=== PATIENT | male | born 1940 | race Caucasian/White ===

== ENCOUNTER 2020-08-10 09:34 | Inpatient (IN) | payer MEDICARE ==
[~2020-08-10 09:34] MED LIST: Sodium Chloride 0.9% 1,000 ML BAG ONE
[2020-08-10] MEDS ORDERED: Ketorolac Tromethamine 30 MG/ML VIAL ONE (10:15)
[2020-08-10 10:30] LABS: #Basophils 0.1 thou/uL (0.0-0.2); #Lymphocytes 0.6 thou/uL (1.20-3.40); #Monocytes 0.8 thou/uL (0.11-0.59); #Neutrophils 8.6 thou/uL (1.40-6.50); %Basophils 1.1 % (0.0-1.0); %Eosinophils 0.2 % (0.0-10.0); %Lymphocytes 5.9 % (21.0-51.0); %Monocytes 7.6 % (0.0-10.0); %Neutrophils 85.2 % (42.0-75.0); Hemoglobin 14.9 g/dL (14.0-18.0); Mean Corpuscular HGB CONC 32.7 g/dL (32.0-36.0); Mean Corpuscular Hemoglobin 27.5 pg (27.0-31.0); Mean Corpuscular Volume 83.9 fL (78.0-98.0); Mean Platelet Volume 5.1 fL (7.4-10.4); Platelet Count 189 thou/uL (130-400); RBC Distribution Width 12.4 % (11.5-14.5); Red Blood Cell (RBC) Count 5.41 mill/uL (4.70-6.10); White Blood Cell (WBC) Count 10.1 thou/uL (4.8-10.8)
[2020-08-10 10:47] LABS: ALT (SGPT) 48 U/L (8-55); AST (SGOT) 57 U/L (5-34); Albumin 4.2 g/dL (3.4-4.8); Alkaline Phosphatase 58 U/L (40-110); Anion Gap 20 mmol/L (10-20); BUN (Urea Nitrogen) 17 mg/dL (8.4-25.7); Bilirubin, Total 1.5 mg/dL (0.2-1.2); Calc. Creatinine Clearance 0 mL/min (70-130); Calcium 9.1 mg/dL (7.8-10.44); Carbon Dioxide 20 mmol/L (23-31); Chloride 102 mmol/L (98-107); Glucose 184 mg/dL (83-110); Potassium 3.9 mmol/L (3.5-5.1); Protein, Total 7.2 g/dL (5.8-8.1); Sodium 138 mmol/L (136-145)
--- NOTE | 2020-08-10 10:50 | CT ---
EXAM: CT cervical spine PROVIDED CLINICAL HISTORY: Neck pain after slipping and falling on ice. TECHNIQUE: Contiguous axial CT images are obtained through the cervical spine from the skull base to the T1-2 le chris. Sagittal and coronal reformatted images are provided. COMPARISON: None FINDINGS: No evidence of a fracture or traumatic subluxation involving the cervical spine. Multilevel degenerative changes are seen throughout the cervical spine. There is narrowing of the int ervertebral disc spaces at all levels with multilevel osteophytes present. Moderate left-sided neural foraminal narrowing is present at C2-3 level predominantly related to prominent eccentric left -sided disc osteophyte complex and uncinate process hypertrophy. There is narrowing of the central spinal canal with severe left and moderate right-sided neural foraminal narrowing due to disc osteoph yte complex and uncinate process hypertrophy at the C3-4 level. A large left posterolateral osteophyte is present superimposed on disc osteophyte complex at the C4-5 level. This results in mass effect on the left anterolateral aspect of the spinal cord, and there is severe left-sided neural foraminal narrowing. Mild/moderate bilateral neural foraminal narrowing i s present C5-6 level due to disc osteophyte complex and uncinate process hypertrophy. Mild/moderate left-sided neural foraminal narrowing is present at C6-7 level. Vascular calcifications are seen in the carotid arteries. No prevertebral soft tissue swelling apparent. Visualized lung apices appear clear. Partial visualization of a dual-lead left subclavian cardiac pacemaking device. There is suggestion of a subcentimeter nodule posterior aspect left lobe of thyroid gland which is to o small to characterize. IMPRESSION: 1.No fracture or subluxation involving the cervical spine. 2. Multilevel degenerative changes within the cervical spine with bony encroachment resulting in neur al foraminal narrowing as well as central canal narrowing at multiple levels. 3. Question of a subcentimeter nodule left lobe of thyroid gland which is difficult to further charac terize.
--- NOTE | 2020-08-10 11:00 | RAD ---
EXAM: CHEST ONE VIEW HISTORY: Injury after slipping on ice. COMPARISON: None FINDINGS: Dual-lead left subclavian cardiac pacemaking device is noted in place. Cardiac silhouette is magnifie d by projection. Pulmonary vasculature is within normal limits. The left inferolateral costophrenic angle as well as the inferior aspect right lateral costophrenic angle are excluded from view. Lungs a re otherwise clear. No pneumothorax or significant pleural effusion is visualized. Mild degenerative changes are seen in the spine. IMPRESSION: Exclusion of the lateral costophrenic angles, but there is otherwise no acute cardiopulmonary process .
--- NOTE | 2020-08-10 11:21 | CT ---
CT BRAIN WITHOUT CONTRAST: HISTORY: Fall. Slipped on ice. COMPARISON: None. FINDINGS: Moderate atrophy. Extensive microangiopathic changes. No acute hemorrhage or infarct. No midline s hift or mass effect. The calvarium is intact. Paranasal sinuses and mastoids are clear. IMPRESSION: No acute intracranial abnormality. POS: HOME
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
--- NOTE | 2020-08-10 11:29 | RAD ---
RIGHT KNEE 4 VIEWS: HISTORY: Pain. Slipped on ice. COMPARISON: None. FINDINGS: Ossification of the extruded medial meniscus. Moderate lateral compartment osteophytes. No acute di splaced fracture or malalignment. IMPRESSION: No acute osseous abnormality. POS: HOME
--- NOTE | 2020-08-10 11:29 | RAD ---
LEFT KNEE 4 VIEWS: HISTORY: Slipped and fell on ice. COMPARISON: None. FINDINGS: Some mild medial compartment joint space narrowing. No acute displaced fracture or malalignment. No significant joint effusion. IMPRESSION: No acute displaced fracture of the knee. POS: HOME
[2020-08-10 15:20] VITALS: BMI 33.7
[2020-08-10] MEDS: Sodium Chloride 0.9% 1,000 ML IV SCH ×2 (18:01→20:23)
[2020-08-10] MEDS ORDERED: HYDROcodone/Acetaminophen 5/325 mg Tablet PO PRN (18:06)
[2020-08-10] MEDS ORDERED: Ondansetron PF 4 MG/2 ML Vial IVP PRN (18:07)
[2020-08-10] MEDS ORDERED: Senokot S 8.6-50 MG TAB PO PRN (18:38)
[2020-08-10 19:08] LABS: SARS-CoV-2 NAA Rapid Test Not Detected (NotDetected)
[2020-08-10] MEDS: Enoxaparin Sodium 40 MG/0.4 ML SYRINGE SC SCH (20:11)
[2020-08-11] MEDS: Sodium Chloride 0.9% 1,000 ML IV SCH ×5 (01:23→16:47)
[2020-08-11] MEDS: HYDROcodone/Acetaminophen 5/325 mg Tablet PO PRN ×2 (03:07→16:35)
[2020-08-11 05:38] LABS: #Basophils 0.1 thou/uL (0.0-0.2); #Eosinphils 0.1 thou/uL (0.0-0.7); #Lymphocytes 0.8 thou/uL (1.20-3.40); #Monocytes 0.6 thou/uL (0.11-0.59); #Neutrophils 5.8 thou/uL (1.40-6.50); %Basophils 1.2 % (0.0-1.0); %Eosinophils 1.7 % (0.0-10.0); %Lymphocytes 11.2 % (21.0-51.0); %Monocytes 7.5 % (0.0-10.0); %Neutrophils 78.4 % (42.0-75.0); Hemoglobin 12.3 g/dL (14.0-18.0); Mean Corpuscular HGB CONC 32.8 g/dL (32.0-36.0); Mean Corpuscular Hemoglobin 27.6 pg (27.0-31.0); Mean Corpuscular Volume 84.2 fL (78.0-98.0); Mean Platelet Volume 5.1 fL (7.4-10.4); Platelet Count 162 thou/uL (130-400); RBC Distribution Width 12.2 % (11.5-14.5); Red Blood Cell (RBC) Count 4.47 mill/uL (4.70-6.10); White Blood Cell (WBC) Count 7.4 thou/uL (4.8-10.8)
[2020-08-11] MEDS: Acetaminophen 325 MG TAB PO PRN ×2 (09:02→14:34)
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
[2020-08-11 13:48] LABS: ALT (SGPT) 33 U/L (8-55); AST (SGOT) 44 U/L (5-34); Albumin 3.5 g/dL (3.4-4.8); Alkaline Phosphatase 47 U/L (40-110); Anion Gap 12 mmol/L (10-20); BUN (Urea Nitrogen) 15 mg/dL (8.4-25.7); Bilirubin, Total 1.1 mg/dL (0.2-1.2); CK (CPK) 1246 U/L (30-200); Calc. Creatinine Clearance 84 mL/min (70-130); Calcium 7.7 mg/dL (7.8-10.44); Carbon Dioxide 23 mmol/L (23-31); Chloride 106 mmol/L (98-107); Globulin 2.2 g/dL (2.4-3.5); Glucose 165 mg/dL (83-110); Potassium 3.8 mmol/L (3.5-5.1); Protein, Total 5.7 g/dL (5.8-8.1); Sodium 137 mmol/L (136-145)
[2020-08-11] MEDS ORDERED: FLU VACC QS2020-21(65YR UP)/PF 240 MCG/0.7 ML SYRINGE IM ONE (16:00)
[2020-08-11] MEDS: Enoxaparin Sodium 40 MG/0.4 ML SYRINGE SC SCH (20:26)
[2020-08-12] MEDS: HYDROcodone/Acetaminophen 5/325 mg Tablet PO PRN (02:46)
[2020-08-12] MEDS: Sodium Chloride 0.9% 1,000 ML IV SCH ×3 (03:53→19:24)
[2020-08-12 06:05] LABS: #Basophils 0.1 thou/uL (0.0-0.2); #Eosinphils 0.1 thou/uL (0.0-0.7); #Lymphocytes 0.6 thou/uL (1.20-3.40); #Monocytes 0.6 thou/uL (0.11-0.59); #Neutrophils 6.2 thou/uL (1.40-6.50); %Basophils 0.8 % (0.0-1.0); %Eosinophils 1.3 % (0.0-10.0); %Lymphocytes 7.9 % (21.0-51.0); %Monocytes 7.6 % (0.0-10.0); %Neutrophils 82.4 % (42.0-75.0); Hemoglobin 12.4 g/dL (14.0-18.0); Mean Corpuscular HGB CONC 31.9 g/dL (32.0-36.0); Mean Corpuscular Volume 84.9 fL (78.0-98.0); Mean Platelet Volume 5.6 fL (7.4-10.4); Platelet Count 164 thou/uL (130-400); White Blood Cell (WBC) Count 7.5 thou/uL (4.8-10.8)
[2020-08-12 06:13] LABS: ALT (SGPT) 36 U/L (8-55); AST (SGOT) 43 U/L (5-34); Albumin 3.5 g/dL (3.4-4.8); Alkaline Phosphatase 45 U/L (40-110); Anion Gap 15 mmol/L (10-20); BUN (Urea Nitrogen) 8 mg/dL (8.4-25.7); Bilirubin, Total 1.1 mg/dL (0.2-1.2); CK (CPK) 1013 U/L (30-200); Calc. Creatinine Clearance 102 mL/min (70-130); Calcium 8.1 mg/dL (7.8-10.44); Carbon Dioxide 19 mmol/L (23-31); Chloride 106 mmol/L (98-107); Globulin 2.7 g/dL (2.4-3.5); Glucose 180 mg/dL (83-110); Potassium 3.8 mmol/L (3.5-5.1); Protein, Total 6.2 g/dL (5.8-8.1); Sodium 136 mmol/L (136-145)
[2020-08-12 12:00] LABS: Hemoglobin A1c 9.3 % (4.0-6.0)
--- NOTE | 2020-08-12 12:56 | PRG ---
DATE OF SERVICE: 08/12/2020 SUBJECTIVE: The patient says he feels better today. He has been walking with physical therapy. He said he is having to urinate a lot with the IV fluids he is receiving. The patient said that he has talked to his sister and she plans to come up here tomorrow to pick him up if he is doing well enough to be discharged. OBJECTIVE: GENERAL: The patient is sitting up in a geriatric chair. He is alert, very talkative, answers questions appropriately. VITAL SIGNS: Show a temperature 98.5, pulse 83, respirations 18, O2 saturation 97%. Blood pressure was 172/98, earlier blood pressure was 142/70. His weight is 255. Admission weight was 248. LUNGS: Clear. HEART: Regular rate. EXTREMITIES: Have no edema. The patient does have abrasions more on the left knee than the right. LABORATORY DATA: His lab shows H and H of 12.4 and 39.0, white cell count 7500, 82% segs, 8% lymphocytes, platelet count 164,000. Sodium 136, potassium 3.8, BUN 8, creatinine 0.91, GFR up to 80, glucose 180. His CK is down to 1013 from the high of 1246. ASSESSMENT: 1. Rhabdomyolysis. a. Secondary to a fall to on 08/10/2020. b. Improved with excellent renal function. CK down to 1000 as of 08/12/2020. 2. Fall on the ice that occurred on 08/10/2020 from slipping. a. Unable to get up and laid out on the ice and in the snow extremely cold for over an hour. 3. History of diabetes type 2, on no medication. 4. Obesity. 5. Mild memory impairment. 6. General weakness. a. Secondary to recent fall and rhabdomyolysis. b. Improving, ambulating very well with PT. PLAN: We will reduce patient's fluid to 50 cc/hour. Recheck his CK in the morning and renal function. Tentatively, we will plan on letting him go home with his sister tomorrow. Job ID: [id number]
[2020-08-12] MEDS ORDERED: Enoxaparin Sodium 40 MG/0.4 ML SYRINGE SC SCH (21:00)
[2020-08-13 06:06] LABS: Anion Gap 15 mmol/L (10-20); BUN (Urea Nitrogen) 6 mg/dL (8.4-25.7); CK (CPK) 945 U/L (30-200); Calc. Creatinine Clearance 101 mL/min (70-130); Calcium 8.8 mg/dL (7.8-10.44); Carbon Dioxide 22 mmol/L (23-31); Chloride 104 mmol/L (98-107); Glucose 174 mg/dL (83-110); Potassium 3.6 mmol/L (3.5-5.1); Sodium 137 mmol/L (136-145)
[2020-08-13] MEDS: Acetaminophen 325 MG TAB PO PRN (07:15)
[2020-08-13 08:07] VITALS: BP 179/107; TEMP 98.4
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
== END 2020-08-13 13:10 | disposition home or self-care (01) | DRG 566 ==
LOC: MADERS 09:34 → OBSVTOIN 13:57 → MADMS 13:57
PROVIDERS: ADMIT Family Medicine; ATTEND Family Medicine
DX: T79.6XXA Traumatic ischemia of muscle, initial encounter (principal); G30.9 Alzheimer's disease, unspecified; F02.80 Dementia in other diseases classified elsewhere, unspecified severity, without behavioral disturbance, psychotic disturbance, mood disturbance, and anxiety; E11.9 Type 2 diabetes mellitus without complications; W00.0XXA Fall on same level due to ice and snow, initial encounter; E66.9 Obesity, unspecified; Z20.822 Contact with and (suspected) exposure to COVID-19; R41.3 Other amnesia; Z90.49 Acquired absence of other specified parts of digestive tract; Z90.89 Acquired absence of other organs; Z68.34 Body mass index [BMI] 34.0-34.9, adult
CPT/HCPCS: 0240U; 36415; 70450; 71045; 72125; 72170; 80048; 80053; 82550; 83036; 85025; 85610; 90471; 90662; 90732; 96372; G0008; G0009; G0378; J1650; J1885; J7050